=== PATIENT | female | born 1955 | race Caucasian/White ===

== ENCOUNTER → 2019-03-30 07:54 | Outpatient (CLI) | payer MEDICARE, OTHER, SELFPAY ==
--- NOTE | 2019-03-30 | DI.MG.S_ITS ---
BILATERAL DIGITAL SCREENING MAMMOGRAM 3D/2D WITH CAD: 03/30/2019 CLINICAL: Routine screening. Comparison is made to exams dated: 04/13/2017 mammogram, 03/23/2016 mammogram - [facility], and 02/07/2013 mammogram - [facility]. The tissue of both breasts is predominantly fatty. Current study was also evaluated with a Computer Aided Detection (CAD) system. No significant masses, calcifications, or other findings are seen in either breast. There has been no significant interval change. IMPRESSION: NEGATIVE There is no mammographic evidence of malignancy. A 1 year screening mammogram is recommended. This exam was interpreted at Station ID: [id number]. NOTE: For mammograms, a report in lay terms will be sent to the patient. Approximately 15% of breast malignancies will not be visualized mammographically. In the management of a palpable breast mass, a negative mammogram must not discourage biopsy of a clinically suspicious lesion. Electronically Signed By: Yaron edmonds/kayla:03/30/2019 10:25:15 letter sent: Normal Exam ACR BI-RADS Category 1: Negative 3341F
== END ==
PROVIDERS: PCP Family Medicine; Visit Provider Family Medicine
DX: Z12.31 Encounter for screening mammogram for malignant neoplasm of breast (principal)
CPT/HCPCS: 77063; 77067

== ENCOUNTER → 2020-04-29 11:08 | Outpatient (CLI) | payer MEDICARE, OTHER, SELFPAY ==
--- NOTE | 2020-04-29 | DI.MG.S_ITS ---
BILATERAL DIGITAL SCREENING MAMMOGRAM 3D/2D WITH CAD: 04/29/2020 CLINICAL: Routine screening. Comparison is made to exams dated: 03/30/2019 mammogram, 04/13/2017 mammogram, and 03/23/2016 mammogram - [facility]. The tissue of both breasts is predominantly fatty. Current study was also evaluated with a Computer Aided Detection (CAD) system. No significant masses, calcifications, or other findings are seen in either breast. There has been no significant interval change. IMPRESSION: NEGATIVE There is no mammographic evidence of malignancy. A 1 year screening mammogram is recommended. This exam was interpreted at Station ID: [id number]. NOTE: For mammograms, a report in lay terms will be sent to the patient. Approximately 15% of breast malignancies will not be visualized mammographically. In the management of a palpable breast mass, a negative mammogram must not discourage biopsy of a clinically suspicious lesion. Electronically Signed By: Yaron edmonds/kayla:04/29/2020 15:21:34 letter sent: Normal Exam ACR BI-RADS Category 1: Negative 3341F
== END ==
PROVIDERS: PCP Family Medicine; Referring Provider Family Medicine; Visit Provider Family Medicine
DX: Z12.31 Encounter for screening mammogram for malignant neoplasm of breast (principal)
CPT/HCPCS: 77063; 77067

== ENCOUNTER → 2020-11-05 14:15 | Outpatient (CLI) | payer MEDICARE, OTHER, SELFPAY ==
--- NOTE | 2020-11-05 | DI.RAD.S_ITS ---
PROCEDURE: XR RIBS LT 2V INDICATIONS: Pleurodynia TECHNIQUE: 2 views of the left ribs were acquired. COMPARISON: [facility], CR, XR CHEST 2V, 11/05/2020, 14:24. FINDINGS: Surgical changes and devices: None. Bones and chest wall: Possible nondisplaced fracture of the left 7th rib laterally. No suspicious bony lesions. Overlying soft tissues appear unremarkable. Severe scoliosis. Lungs and pleura: The visualized lung appears clear. No pleural effusions or pneumothorax are visible. IMPRESSION: Possible nondisplaced left 7th rib fracture. Dictated by: Nelida Costa M.D. on 11/05/2020 at 15:27 Approved by: Nelida Costa M.D. on 11/05/2020 at 15:32
--- NOTE | 2020-11-05 | DI.RAD.S_ITS ---
PROCEDURE: XR CHEST 2V INDICATIONS: Pleurodynia TECHNIQUE: 2 views of the chest were acquired. COMPARISON: None. FINDINGS: Surgical changes and devices: None. Lungs and pleura: Lungs are clear. No pleural effusions or pneumothorax. Mediastinum: Mediastinal contours are normal. Heart size is normal. Bones and chest wall: No suspicious bony abnormalities. Soft tissues appear unremarkable. IMPRESSION: Normal for age, source of current chest pain symptoms is not seen. Dictated by: Dominik Jaime M.D. on 11/05/2020 at 14:59 Approved by: Dominik Jaime M.D. on 11/05/2020 at 14:59
== END ==
PROVIDERS: PCP Family Medicine; Referring Provider Nurse Practitioner Family; Visit Provider Nurse Practitioner Family
DX: R07.81 Pleurodynia (principal)
CPT/HCPCS: 71046; 71100

== ENCOUNTER → 2020-12-09 09:29 | Outpatient (CLI) | payer MEDICARE, OTHER, SELFPAY ==
--- NOTE | 2020-12-09 09:31 | DI.RAD.S_ITS ---
PROCEDURE: XR DEXA AXIAL SKELETON INDICATIONS: Fracture of one rib, left side, initial encounter COMPARISON: None. FINDINGS: This blank DEXA report has been sent in error by the PACS system. The correct and complete report will be forthcoming in 1-2 days. Thank you for your patience and understanding. Dictated by: Flaca Lewis MD, PhD on 12/09/2020 at 16:17 Approved by: Flaca Lewis MD, PhD on 12/09/2020 at 16:17
== END ==
PROVIDERS: PCP Family Medicine; Referring Provider Nurse Practitioner Family; Visit Provider Nurse Practitioner Family
DX: Z78.0 Asymptomatic menopausal state (principal); M85.852 Other specified disorders of bone density and structure, left thigh; E07.9 Disorder of thyroid, unspecified; S22.32XA Fracture of one rib, left side, initial encounter for closed fracture; E11.9 Type 2 diabetes mellitus without complications; Z82.62 Family history of osteoporosis
CPT/HCPCS: 77080

== ENCOUNTER → 2021-05-09 17:08 | Outpatient (CLI) | payer MEDICARE, OTHER, SELFPAY ==
--- NOTE | 2021-05-09 | DI.MG.S_ITS ---
BILATERAL DIGITAL SCREENING MAMMOGRAM 3D/2D WITH CAD: 05/09/2021 CLINICAL: Routine screening. Comparison is made to exams dated: 04/29/2020 mammogram, 03/30/2019 mammogram, 04/13/2017 mammogram, and 03/23/2016 mammogram - [facility]. There are scattered fibroglandular elements in both breasts. Current study was also evaluated with a Computer Aided Detection (CAD) system. No significant masses, calcifications, or other findings are seen in either breast. There has been no significant interval change. IMPRESSION: NEGATIVE There is no mammographic evidence of malignancy. A 1 year screening mammogram is recommended. This exam was interpreted at Station ID: [id number]. NOTE: For mammograms, a report in lay terms will be sent to the patient. Approximately 15% of breast malignancies will not be visualized mammographically. In the management of a palpable breast mass, a negative mammogram must not discourage biopsy of a clinically suspicious lesion. Electronically Signed By: Jorge Luis evans/kayla:05/12/2021 07:53:55 letter sent: Normal Exam ACR BI-RADS Category 1: Negative 3341F
== END ==
PROVIDERS: PCP Student in an Organized Health Care Education/Training Program; Referring Provider Student in an Organized Health Care Education/Training Program; Visit Provider Student in an Organized Health Care Education/Training Program
DX: Z12.31 Encounter for screening mammogram for malignant neoplasm of breast (principal)
CPT/HCPCS: 77063; 77067

== ENCOUNTER → 2021-11-27 15:58 | Outpatient (CLI) | payer MEDICARE, OTHER, SELFPAY ==
--- NOTE | 2021-11-27 | DI.RAD.S_ITS ---
PROCEDURE: XR CHEST 2V INDICATIONS: CHEST PAIN TECHNIQUE: 2 views of the chest were acquired. COMPARISON: [facility], CR, XR CHEST 2V, 11/05/2020, 14:24. FINDINGS: Surgical changes and devices: None. Lungs and pleura: Lungs are clear. No pleural effusions or pneumothorax. Mediastinum: Mediastinal contours are normal. Heart size is normal. Bones and chest wall: No suspicious bony abnormalities. Soft tissues appear unremarkable. IMPRESSION: No acute finding. Dictated by: Genaro Moreno M.D. on 11/27/2021 at 16:33 Approved by: Genaro Moreno M.D. on 11/27/2021 at 16:33
== END ==
PROVIDERS: PCP Student in an Organized Health Care Education/Training Program; Referring Provider Student in an Organized Health Care Education/Training Program; Visit Provider Student in an Organized Health Care Education/Training Program
DX: R07.89 Other chest pain (principal)
CPT/HCPCS: 71046

== ENCOUNTER → 2021-12-04 13:56 | Outpatient (CLI) | payer MEDICARE, OTHER, SELFPAY ==
--- NOTE | 2021-12-10 10:02 | DIAB.MNT ---
Initial Diabetes Medical Nutrition Therapy Assessment Name: Francisca Mays Date: 12/04/21 Time: 3-410p Dx: Type II Diabetes Provider: Jean Pierre Preferred Learning Style: Reading, hands on Frantz presents today for initial visit regarding T2DM. Recent hgA1c of 7.9%. States she has recently been working on switching to vegetarian. meat and potatoes flaco. Does not love carb counting, though is open to learning more about this to be more educated in reading recipes. Would prefer more general guidelines. States she feels compulsive about eating sweets, mostly chocolate. Has found some low carb chocolates to curb cravings. Significant FH of DM with both parents. Her brother three months ago from DM complications. Understandably tearful regarding this today. Reports feeling some diabetes distress. Feels tired/fatigued with her DM. Feels she is 50# overweight. Endorses angina, sees manual arts therapist 12/05/21. Reports frequent urination and inadequate fluid intake. States she does not feel thirst most of the day. Diet Recall: 8a: oatmeal with walnuts and cranberries, 1/2 tsp honey (30g CHO) ; shake (30g CHO) 11-12: 4-5 crackres, cheese, nuts, fruit (30g CHO0 3p: nothing or 10 chips with salads (0-15g CHO) 6p: acorn squash with rice ; meat potatoes with salad (15-30g CHO) HS: nothing trying to avoid sweets Anthropometrics: Ht: 4'11 Wt: 164# reported Weight history: UBW reported 150s# Physical Activity: use to do [employer] aerobics, her schedule is a barrier. Just returned from her home in [place]. Currently walking most days for 20-25 min Self-Monitoring Blood Glucose: Limited SMBG. BG recorded: 08/10/21: 139 ; 09/12/21: 177 ; 11/05/21: 122 Diabetes Medications: Jardiance 10mg daily Metformin 1000mg BID Pertinent Labs: HgA1c 7.95 H (10/221) ; up from 7.7% Past Medical History: Reported : HLD, Kidney stones, neuropathy, hypothyroidism, angina Nutrition Rx: Carbohydrates: Meal:30-45g Snack: 15-30g Nutrition Diagnosis: - Self monitoring deficit r/t stage of change preparation for SMBG aeb pt report and BG log - Nutrition and food related knowledge deficit r/t limited understanding of carb counting, label reading, and portion recs aeb pt report - Inadequate fluid intake r/t stage of change aeb pt report Intervention: This participant was very receptive. Provided appropriate educational handouts. Discussed the following topics: Completed intake assessment. Discussed barriers to care. Importance of self-monitoring, how often, and when to check. Suggested checking at different times to evaluate meals Diabetes distress and self expectations in DM care Plate Method, impact of macronutrients on blood sugar, meal timing, option for carbohydrate counting, pairing macronutrients and spreading out carbohydrates for better blood glucose management Recommended servings for carbohydrates at meals and snacks Heart health nutrition Tendency for vegetarian diets to be high in CHO Role of physical activity and following guidelines for safety Created SMART goals for patient self-care and success. Goals: Check FBG Attend pool 1 x per week walk 4 days per week check into time marker water bottle Check food labels/recipes for net carbs Follow-up: HERMILA CAMARILLO follow-up in 2-3 weeks, considering taking 3rd DM class. Next visit: foot health, vegetarian proteins and meal planning. Jordana Jones RDN, [facility] Certified Diabetes Care and Cake Stripper P: [phone] Thank you for this referral
== END ==
PROVIDERS: PCP Student in an Organized Health Care Education/Training Program; Referring Provider Student in an Organized Health Care Education/Training Program; Visit Provider Student in an Organized Health Care Education/Training Program
DX: E11.9 Type 2 diabetes mellitus without complications (principal); Z79.84 Long term (current) use of oral hypoglycemic drugs; Z71.3 Dietary counseling and surveillance
CPT/HCPCS: 97802

== ENCOUNTER → 2021-12-25 14:15 | Outpatient (CLI) | payer MEDICARE, OTHER, SELFPAY ==
--- NOTE | 2021-12-31 14:49 | DIAB.MNTFU ---
Follow-up Diabetes Medical Nutrition Therapy Assessment Name: Francisca Mays Date: 12/25/21 Time: 230-3p Dx: Type II Diabetes Frantz presents for follow-up regarding T2DM. States she has been tracking FBG and exercise. Has been working on drinking more water since last visit, especially since learning about Jardiance action. States she has been dealing with some unfortunate urgent diarrhea lately. States she has had 2 incidences per week of not making it to the toilet. has contact PCP. Is wondering if there are any foods to eat or avoid. Anthropometrics: Ht: Wt: 164# last reported, no new wt today Physical Activity: Started walking 4 days per week for 20-30 mins. Swim aerobics once per week. Self-Monitoring Blood Glucose: 09/01 elevated FBG per ADA guidelines. No pc readings for review. Date Pre Post Pre Post Pre Post HS 12/19 143 12/20 113 12/21 124 12/22 157 12/23 105 12/24 103 12/25 122 Diabetes Medications: Jardiance 10mg daily Metformin 1000mg BID Pertinent Labs: HgA1c 7.9% H (10/221) ; up from 7.7% Past Medical History: Reported : HLD, Kidney stones, neuropathy, hypothyroidism, angina Nutrition Rx: Carbohydrates: Meal:30-45g Snack: 15-30g Nutrition Diagnosis: - Self monitoring deficit r/t stage of change preparation for SMBG aeb pt report and BG log - improved - Nutrition and food related knowledge deficit r/t limited understanding of carb counting, label reading, and portion recs aeb pt report- not discussed in detail today - Inadequate fluid intake r/t stage of change aeb pt report - improved Intervention: This participant was very receptive. Provided appropriate educational handouts. Discussed the following topics: Blood sugar review and trends. consideration for checking pc readings. Fiber: soluble v insoluble impact on diarrhea Improvements in hydration Physical activity plan and progress Created SMART goals for patient self-care and success. Goals: Check FBG- met Attend pool 1 x per week- met walk 4 days per week- met check into time marker water bottle- met Check food labels/recipes for net carbs- not discussed Aim for 1.5 of new water bottle- new 30 min walking daily - new Follow-up: HERMILA CAMARILLO follow-up in 2-3 weeks. Jordana Jones RDN, [facility] Certified Diabetes Care and Dope Sprayer P: [phone] Thank you for this referral
== END ==
PROVIDERS: PCP Student in an Organized Health Care Education/Training Program; Referring Provider Student in an Organized Health Care Education/Training Program; Visit Provider Student in an Organized Health Care Education/Training Program
DX: E11.9 Type 2 diabetes mellitus without complications (principal); Z71.3 Dietary counseling and surveillance; Z79.84 Long term (current) use of oral hypoglycemic drugs
CPT/HCPCS: 97803

== ENCOUNTER → 2022-02-24 14:31 | Outpatient (CLI) | payer MEDICARE, OTHER, SELFPAY ==
--- NOTE | 2022-02-24 16:56 | DIAB.FU ---
Follow-up Diabetes Education Assessment Name: Francisca Mays Date: 02/24/22 Time: 240-315 Dx: Type II Diabetes Frantz presents today for diabetes education. Reports recent [facility] ED visit for kidney stones. Doing much better now. States they are usually calcium oxalate stones. Has tried avoiding oxalate foods. Water intake seems to be main issue per report. Continues taking Metformin as rx'd though has questions about taking with food, asking if she has to for the pm dose. Denies any GI upset with how she is currently taking it. Continued difficulty with water intake. Averaging 32-40oz per day, low for Jardiance and h/o kidney stones. States most of her fluid consumption is in the pm. Busy with chores in the morning. Endorses more eating out lately. Also reports less variety with veggies. cooks and makes a salad that she does not like much. No other veggies available. She does not prefer to cook. Only eats organic veggies. Physical Activity: Stopped tracking exercise, which has resulted in reduced exercise. Continues swim class on Mondays and walks sometimes. Has noticed an increase in BG recently with reduced exercise. Self-Monitoring Blood Glucose: All but one elevated FBG in the last 7 readings. Prior readings also indicate >130 mg/dL for most FBG. No postprandial for review. Date Pre Post Pre Post Pre Post HS no date-- January 119 no date-- january 143 no date-- january 158 02/19 141 02/20 147 02/23 142 02/24 157 Diabetes Medications: Jardiance 10mg daily Metformin 1000mg BID Pertinent Labs: HgA1c 7.9% H (10/221) ; up from 7.7%. Has PCP visit tomorrow with Jose C and lab work completed. Past Medical History: Reported : HLD, Kidney stones, neuropathy, hypothyroidism, angina Intervention: This participant was very receptive. Provided appropriate educational handouts. Discussed the following topics: Recent blood sugar results and trends Fluid recs and potential strategies for inc Review of general nutrition recommendations and current intake Ways to inc veggie intake with easy to prep veggies (precut, steamer bags) Physical activity plan and impact on blood sugars Fluids and kidney health and jardiance Metformin action time and rec for taking with food is mostly for GI Created SMART goals for patient self-care and success. Goals: Aim for 1.5 of new water bottle- not met 30 min walking daily - not met Drink 8oz water while doing kitchen chores in the am- new Restart tracking exercise- new Check grocery store for steamer veggies - new Follow-up: HERMILA CAMARILLO follow-up in 2-3 weeks Jordana Jones RDN, [facility] Certified Diabetes Care and Financial Institution Manager P: [phone] Thank you for this referral
== END ==
PROVIDERS: PCP Student in an Organized Health Care Education/Training Program; Referring Provider Student in an Organized Health Care Education/Training Program; Visit Provider Student in an Organized Health Care Education/Training Program
DX: E11.9 Type 2 diabetes mellitus without complications (principal); Z79.84 Long term (current) use of oral hypoglycemic drugs; Z71.3 Dietary counseling and surveillance; Z87.442 Personal history of urinary calculi
CPT/HCPCS: G0108

== ENCOUNTER → 2022-03-11 10:22 | Outpatient (CLI) | payer MEDICARE, OTHER, SELFPAY ==
--- NOTE | 2022-03-25 17:28 | DIAB.MNTFU ---
Follow-up Diabetes Medical Nutrition Therapy Assessment Name: Francisca Mays Date: 03/11/22 Time: [id number] Dx: Type II Diabetes Frantz presents for quick check-in. States she has been walking more and tracking PA and BG. reports BG did increase due to diet, mostly ice cream. Saw Dr. Woodall and recent HgA1c was 6.6%! She is very pleased. Reports increasing veggies with salad and frozen veggies. Has been craving sweets, which she attributes coping with food to stress as a child with her father. States he made life hard and she would cope with sugar. Keeps sugar to moderate portions, one cup of ice cream or smaller bag of candy m&ms. Has tried Atkins sweets before with satisfaction. Continues to work on water intake. States she is often 8-16oz below goal each day. Anthropometrics: Ht: Wt: 164# last reported, no new wt today Physical Activity: Recently restarted walking for 30-45min x 3-5 days per week. Self-Monitoring Blood Glucose: Recent FB, 136, 156, 140, 159 (4/5 elevated per ADA) Diabetes Medications: Jardiance 10mg daily Metformin 1000mg BID Pertinent Labs: Recent reported 6.6% HgA1c 7.9% H (10/221) Past Medical History: Reported : HLD, Kidney stones, neuropathy, hypothyroidism, angina Nutrition Rx: Carbohydrates: Meal:30-45g Snack: 15-30g Nutrition Diagnosis: - Self monitoring deficit r/t stage of change preparation for SMBG aeb pt report and BG log - improved - Inadequate fluid intake r/t stage of change aeb pt report - in progress Intervention: This participant was very receptive. Provided appropriate educational handouts. Discussed the following topics: Blood sugar review and trends. Impact of food intake and physical activity Stress management and stress eating Strategies for inc water Physical activity plan and progress Created SMART goals for patient self-care and success. Goals: Drink 8oz water while doing kitchen chores in the am- in progress Restart tracking exercise- met Check grocery store for steamer veggies - met supervisor model making Atkins chocolate bar- new Keep walking- new Add 8oz wtaer per day- continue Follow-up: HERMILA CAMARILLO follow-up in 4 weeks Jordana Jones RDN, [facility] Certified Diabetes Care and Automated Process Operator P: [phone] Thank you for this referral
== END ==
PROVIDERS: PCP Student in an Organized Health Care Education/Training Program; Referring Provider Student in an Organized Health Care Education/Training Program; Visit Provider Student in an Organized Health Care Education/Training Program
DX: E11.9 Type 2 diabetes mellitus without complications (principal); Z79.84 Long term (current) use of oral hypoglycemic drugs; Z71.3 Dietary counseling and surveillance
CPT/HCPCS: 97803

== ENCOUNTER → 2022-04-09 10:24 | Outpatient (CLI) | payer MEDICARE, OTHER, SELFPAY ==
--- NOTE | 2022-04-23 10:37 | DIAB.MNTFU ---
Follow-up Diabetes Medical Nutrition Therapy Assessment Name: Francisca Mays Date: 04/09/22 Time: 1030-11a Dx: Type II Diabetes Frantz presents for follow-up. Reports overall improvements to lifestyle change. Consistent in walking. Has been able to avoid most sweets with using low carb bars for snacks. Has been sometimes adding the extra 8oz water in the morning to be closer to her goal for fluids. Has questions regarding diet soda vs real soda. Gets a diet soda when eating out. Estimates about 40oz water intake most days. Feels more aware of nutrition and water intake now. Would like to exercise longer periods of time. Leaves for [place] in April. Anthropometrics: Ht: Wt: 164# last reported, no new wt today Physical Activity: Walking 30-60 mins per day Self-Monitoring Blood Glucose: Recent FBG 116-132 mg/dL (in goal). Some readings up to 145 mg/dL over the last month, with one high of 159 mg/dL. Overall walking seems to help with morning readings. More consistent walking in her calendar seems to result in better FBG over the following weeks. Diabetes Medications: Jardiance 10mg daily Metformin 1000mg BID Pertinent Labs: Recent reported 6.6% HgA1c 7.9% H (10/221) Past Medical History: Reported : HLD, Kidney stones, neuropathy, hypothyroidism, angina Nutrition Rx: Carbohydrates: Meal:30-45g Snack: 15-30g fluids: 60oz Nutrition Diagnosis: - Inadequate fluid intake r/t stage of change aeb pt report - in progress Intervention: This participant was very receptive. Provided appropriate educational handouts. Discussed the following topics: Blood sugar review and trends. Impact of exercise on results. Diet vs regular soda and impact on BG and health strategies around fluid intake and realistic goals Physical activity plan and progress Created SMART goals for patient self-care and success. Goals: curtain supervisor Atkins chocolate bar- met Keep walking- met Add 8oz wtaer per day- 50% met Walk 45 min- new 40-60oz water/day goal- new Follow-up: HERMILA CAMARILLO follow-up in 4-6 weeks Jordana Jones RDN, [facility] Certified Diabetes Care and Tunnel Heading Inspector P: [phone] Thank you for this referral
== END ==
PROVIDERS: PCP Student in an Organized Health Care Education/Training Program; Referring Provider Student in an Organized Health Care Education/Training Program; Visit Provider Student in an Organized Health Care Education/Training Program
DX: E11.9 Type 2 diabetes mellitus without complications (principal); Z71.3 Dietary counseling and surveillance
CPT/HCPCS: 97803

== ENCOUNTER → 2022-11-06 09:11 | Outpatient (CLI) | payer MEDICARE, OTHER, SELFPAY | PROVIDERS: PCP Student in an Organized Health Care Education/Training Program; Visit Provider Physician Assistant | DX: N89.8 Other specified noninflammatory disorders of vagina (principal) | CPT/HCPCS: 87086; 87210 ==

== ENCOUNTER → 2022-11-26 13:50 | Outpatient (CLI) | payer MEDICARE, OTHER, SELFPAY ==
--- NOTE | 2022-11-26 | DI.RAD.S_ITS ---
Bone Density Report Name: YVETTE THOMAS Age: 67 Sex: Female Ethnicity: White Date of : 1955 Indication: postmenopausal; screening for osteoporosis; Referring Provider: SANTO PERDOMO Study: Bone densitometry was performed. Exam Date: November 26, 2022 Accession number: [id number] Bone Density: Region BMD T-score Z-score Classification AP Spine(L1-L4) 0.928 -1.1 1.0 Osteopenia Femoral Neck (Left) 0.650 -1.8 -0.1 Osteopenia Total Hip (Left) 0.960 0.1 1.6 Normal Femoral Neck (Right) 0.685 -1.5 0.3 Osteopenia Total Hip (Right) 0.932 -0.1 1.4 Normal Total Hip Mean 0.946 0.0 1.5 Normal World Health Organization criteria for BMD impression classify patients as: Normal (T-score at or above -1.0), Osteopenia (T-score between -1.0 and -2.5), or Osteoporosis (T-score at or below -2.5). 10-year Fracture Risk(1): Major Osteoporotic Fracture 10% Hip Fracture 1.5% Reported Risk Factors: [place] (), Neck BMD=0.650, BMI=30.9 (1) FRAX(R) Version 3.08. Fracture probability calculated for an untreated patient. Fracture probability may be lower if the patient has received treatment. Previous Exams: -- Region Exam Age BMD T-score BMD Change BMD Change Date g/cm2 vs Baseline vs Previous -- AP Spine (L1-L4) 11/26/2022 67 0.928 -1.1 -0.079 (-7.9%)# -0.079 (-7.9%)# 12/09/2020 65 1.008 -0.4 Total Hip(Left) 11/26/2022 67 0.960 0.1 -0.028 (-2.9%)# -0.028 (-2.9%)# 12/09/2020 65 0.988 0.4 Total Hip(Right) 11/26/2022 67 0.932 -0.1 0.013 (1.4%)# 0.013 (1.4%)# 12/09/2020 65 0.919 -0.2 -- *Denotes significance at 95% confidence level, LSC for AP Spine = 0.022 g/cm2, LSC for Total Hip = 0.027 g/cm2 # Denotes dissimilar scan types or analysis methods Impression: The patient has low bone mass, based on the Left Femoral Neck T-score. The patient has an estimated ten-year risk of hip fracture of 1.5% and an estimated ten-year risk of major fracture of 10%, based on the WHO FRAX algorithm. No significant bone loss was observed. Discussion: BONE DENSITY IS LOW AT ONE OR MORE SKELETAL SITES. This patient's lowest T-score is low at one or more skeletal sites. It meets the World Health Organization's (WHO) criteria for low bone mass (T-score between -1.0 and -2.5). The patient's 10-year risk of fracture as calculated by FRAX is less than the threshold where pharmacological therapy is recommended by the National Osteoporosis Foundation (NOF). However, all treatment decisions require clinical judgment and consideration of individual patient factors, including patient preferences, comorbidities, previous drug use, risk factors not captured in the FRAX model (e.g., frailty, falls, vitamin D deficiency, increased bone turnover, interval significant decline in bone density) and possible under or overestimation of fracture risk by FRAX. The patient should follow a healthful lifestyle (good nutrition with adequate calcium and vitamin D, and appropriate weight-bearing exercise). Follow-Up: Consider repeating this study in 2 to 3 years to reassess this patient's status, or sooner if there is some new clinical indication. Reported by: TERRENCE ONEAL M.D. on 11/26/2022 2:29:00 PM.
--- NOTE | 2022-11-26 | DI.MG.S_ITS ---
BILATERAL DIGITAL SCREENING MAMMOGRAM 3D/2D WITH CAD: 11/26/2022 CLINICAL: Routine screening. Comparison is made to exams dated: 05/09/2021 mammogram, 04/29/2020 mammogram, and 03/30/2019 mammogram - [facility]. There are scattered areas of fibroglandular density in both breasts (category b / 25%-50% glandular tissue). Current study was also evaluated with a Computer Aided Detection (CAD) system. No significant masses, calcifications, or other findings are seen in either breast. There has been no significant interval change. IMPRESSION: NEGATIVE There is no mammographic evidence of malignancy. A 1 year screening mammogram is recommended. Based on the Tyrer Cuzick model (a risk assessment model) the patient's lifetime risk is 4.0% and her 10 year risk is 2.3%. According to the ACR, ACS, and NCCN guidelines, an annual breast MRI exam along with mammogram is recommended if the patient's lifetime risk is 20% or greater. This exam was interpreted at Station ID: [id number]. NOTE: For mammograms, a report in lay terms will be sent to the patient. Approximately 15% of breast malignancies will not be visualized mammographically. In the management of a palpable breast mass, a negative mammogram must not discourage biopsy of a clinically suspicious lesion. Electronically Signed By: Christian masters/kayla:11/26/2022 15:27:33 letter sent: Normal Exam ACR BI-RADS Category 1: Negative 3341F
== END ==
PROVIDERS: PCP Family Medicine; Referring Provider Internal Medicine; Visit Provider Internal Medicine
DX: Z12.31 Encounter for screening mammogram for malignant neoplasm of breast (principal); Z78.0 Asymptomatic menopausal state; Z13.820 Encounter for screening for osteoporosis; M85.852 Other specified disorders of bone density and structure, left thigh
CPT/HCPCS: 77063; 77067; 77080

== ENCOUNTER → 2023-11-29 08:08 | Outpatient (CLI) | payer MEDICARE, OTHER, SELFPAY ==
--- NOTE | 2023-11-29 08:09 | DI.MG.S_ITS ---
BILATERAL DIGITAL SCREENING MAMMOGRAM 3D/2D WITH CAD: 11/29/2023 CLINICAL: Routine screening. Comparison is made to exams dated: 11/26/2022 mammogram, 05/09/2021 mammogram, and 04/29/2020 mammogram - [facility]. There are scattered areas of fibroglandular density in both breasts (category b / 25%-50% glandular tissue). Current study was also evaluated with a Computer Aided Detection (CAD) system. There is a benign calcification in the right breast. No significant masses, calcifications, or other findings are seen in either breast. There has been no significant interval change. IMPRESSION: BENIGN There is no mammographic evidence of malignancy. A 1 year screening mammogram is recommended. Based on the Tyrer Cuzick model (a risk assessment model) the patient's lifetime risk is 3.8% and her 10 year risk is 2.4%. According to the ACR, ACS, and NCCN guidelines, an annual breast MRI exam along with mammogram is recommended if the patient's lifetime risk is 20% or greater. This exam was interpreted at Station ID: [id number]. NOTE: For mammograms, a report in lay terms will be sent to the patient. Approximately 15% of breast malignancies will not be visualized mammographically. In the management of a palpable breast mass, a negative mammogram must not discourage biopsy of a clinically suspicious lesion. Electronically Signed By: Shyanne schaffer/kayla:11/29/2023 15:49:00 letter sent: Normal Exam ACR BI-RADS Category 2: Benign Finding(s) 3342F
== END ==
LOC: MAMMO 08:09
PROVIDERS: PCP Family Medicine; Referring Provider Family Medicine; Visit Provider Family Medicine
DX: Z12.31 Encounter for screening mammogram for malignant neoplasm of breast (principal); R92.323 Mammographic fibroglandular density, bilateral breasts
CPT/HCPCS: 77063; 77067

== ENCOUNTER → 2024-10-18 10:35 | Outpatient (CLI) | payer MEDICARE, OTHER, SELFPAY ==
--- NOTE | 2024-10-18 10:38 | DI.MRI.S_ITS ---
PROCEDURE: MR CERVICAL SPINE WO CON INDICATIONS: NECK PAIN,CERVICAL RADICULOPATHY TECHNIQUE: Noncontrast sagittal T1 spin echo and T2 fast spin echo, sagittal STIR, foraminal oblique sagittal T2 fast spin echo, and axial gradient echo or T2 fast spin echo through the cervical spine. COMPARISON: None. FINDINGS: Image quality: Excellent. Alignment and Curvature: Loss of normal cervical lordosis. 2 mm of retrolisthesis of C3 on C4. 3 mm of anterolisthesis of C4 on C5. 2 mm of retrolisthesis of C6 on C7. Bone Marrow: Marrow demonstrates normal overall signal. Mild reactive signal throughout the endplates of the cervical and upper thoracic spine, most prominently at C5-C6 and C6-C7. Spinal Cord: Visualized spinal cord has normal size and signal. No cerebellar tonsillar herniation. Paraspinous Soft Tissues: No paravertebral masses. Prevertebral soft tissues are normal in thickness. C2-C3: Moderate disc desiccation. Mild diffuse disc bulge. Mild facet and uncovertebral hypertrophy. Mild canal stenosis. Mild bilateral foraminal stenosis. C3-C4: Moderate disc desiccation. Mild disc height loss and diffuse disc bulge. Mild facet and uncovertebral hypertrophy. Mild canal stenosis. Moderate left and mild right foraminal stenosis. C4-C5: Moderate disc height loss and desiccation. Mild diffuse disc bulge. Mild facet and uncovertebral hypertrophy. Mild canal stenosis. Moderate right and mild left foraminal stenosis. C5-C6: Moderate disc height loss and desiccation. Moderate diffuse disc bulge. Moderate facet and uncovertebral hypertrophy bilaterally. Moderate to severe canal stenosis. Minimal cord flattening. Severe right and moderate left foraminal stenosis. Right C6 nerve root compression. C6-C7: Moderate disc desiccation. Mild disc height loss. Moderate diffuse disc bulge. Moderate facet and uncovertebral hypertrophy bilaterally. Moderate canal stenosis. Moderate bilateral foraminal stenosis. C7-T1: Moderate disc desiccation. Mild facet and uncovertebral hypertrophy bilaterally. No significant canal stenosis. Mild bilateral foraminal stenosis. IMPRESSION: 1. Multilevel degenerative disc and facet disease, as well as uncovertebral hypertrophy. 2. Multilevel canal stenoses, worst at C5-C6 where there is minimal cord flattening. 3. Multilevel foraminal stenoses, worst at C5-C6 where there is associated intraforaminal nerve root compression. Recommend correlation with clinical symptoms to ascertain relevance of this finding. Dictated by: Arturo Hylton M.D. on 10/18/2024 at 12:26 Approved by: Arturo Hylton M.D. on 10/18/2024 at 12:29
== END ==
LOC: MRI 10:37
PROVIDERS: PCP Family Medicine; Referring Provider Family Medicine; Visit Provider Family Medicine
DX: M50.11 Cervical disc disorder with radiculopathy, high cervical region (principal); M47.22 Other spondylosis with radiculopathy, cervical region; M48.02 Spinal stenosis, cervical region
CPT/HCPCS: 72141

== ENCOUNTER → 2024-11-10 07:30 | Outpatient (CLI) | payer MEDICARE, OTHER, SELFPAY ==
--- NOTE | 2024-11-10 07:31 | DI.US.S_ITS ---
PROCEDURE: US THYROID INDICATIONS: THYROID DISORDER SCREEN TECHNIQUE: Real-time scanning was performed of the thyroid gland, with image documentation. COMPARISON: None. FINDINGS: Thyroid: Right lobe measures 1.9 x 1.2 x 0.8 cm. Left lobe measures 4.3 x 1.9 cm. Isthmus is 0.14 cm thick. Echotexture is heterogeneous. Nodule number: 1 Location: Left thyroid lobe Size: 3.0 x 1.8 x 2.6 cm. Composition: Solid Echogenicity: Isoechoic to hypoechoic Shape: wider than tall. Margins: Smooth Echogenic foci: None Total points: 4 ACR TI-RADS category: 4 IMPRESSION: TI-RADS 4 lesion of the left thyroid lobe measuring 3.0 x 1.8 x 2.6 cm. Per chart review, the patient underwent biopsy of the thyroid 20 years prior, with benign results. Size comparison is not available at time of dictation. Correlation with prior examination is recommended. If this lesion has been biopsied in the past, and there has been 20% volume increase compared with prior, a re-biopsy would be indicated. If there has been no interval change of this previously biopsied nodule, no additional biopsy is recommended. Heterogeneous thyroid echogenicity, consistent with thyroiditis. ACR TI-RADS definitions and recommendations: TI-RADS 1 (benign): 0 points. FNA not needed. TI-RADS 2 (not suspicious): 2 points. FNA not needed. TI-RADS 3: 3 points. * FNA if 2.5 cm or larger, follow up if 1.5 cm or larger (at 1, 3, and 5 years). TI-RADS 4: 4-6 points. * FNA if 1.5 cm or larger, follow up if 1 cm or larger (at 1, 2, 3, and 5 years). TI-RADS 5: 7 points or more. * FNA if 1 cm or larger, follow up if 0.5 cm or larger (every year for 5 years). Dictated by: Donald Saravia M.D. on 11/10/2024 at 8:49 Approved by: Donald Saravia M.D. on 11/10/2024 at 9:02
== END ==
PROVIDERS: PCP Family Medicine; Referring Provider Family Medicine; Visit Provider Family Medicine
DX: Z13.29 Encounter for screening for other suspected endocrine disorder (principal); E07.89 Other specified disorders of thyroid
CPT/HCPCS: 76536

== ENCOUNTER → 2024-12-16 08:45 | Outpatient (CLI) | payer MEDICARE, OTHER, SELFPAY ==
--- NOTE | 2024-12-16 08:46 | DI.MG.S_ITS ---
MM screening mammo BI: 12/16/2024. BI-RADS: 2 CLINICAL: 69-year old female for bilateral screening mammogram. Tyrer-Cuzick lifetime risk of 2.1%. No personal or first-degree family history of breast cancer. PRIOR EXAMS 11/29/2023, 11/26/2022, 05/09/2021, 04/29/2020, 03/30/2019, 04/13/2017, 03/23/2016. MAMMOGRAPHY TECHNIQUE: 2D and 3D (tomosynthesis) digital mammographic views obtained, with additional images as needed for full coverage. Current study was also evaluated with a Computer Aided Detection (CAD) system. DENSITY A. The breasts are almost entirely fatty. MAMMOGRAPHY FINDINGS Right: Benign-appearing calcification noted on the right. There are no suspicious masses, calcifications, or other findings in the breast. No significant change from comparison. Left: No suspicious mass, asymmetry, microcalcification, or other abnormality seen. No significant change from comparison. IMPRESSION: Right * No evidence of malignancy with benign findings. Left * No evidence of malignancy. RECOMMENDATIONS Bilateral * Annual screening mammography. OVERALL ASSESSMENT CATEGORY BI-RADS-2: Benign. The [employer] recommends annual screening mammography beginning at age 40 for women with average risk of breast cancer. ELECTRONICALLY SIGNED: Shyanne Wolfe M.D. on 12/19/2024 at 12:13:44 PM PT Interpreting Station ID: [id number]
== END ==
PROVIDERS: PCP Family Medicine; Referring Provider Family Medicine; Visit Provider Family Medicine
DX: Z12.31 Encounter for screening mammogram for malignant neoplasm of breast (principal)
CPT/HCPCS: 77063; 77067

== ENCOUNTER → 2025-01-31 09:05 | Outpatient (CLI) | payer MEDICARE, OTHER, SELFPAY ==
--- NOTE | 2025-01-31 09:06 | DI.US.S_ITS ---
PROCEDURE: US ABDOMEN LIMITED INDICATIONS: abd pain TECHNIQUE: Real-time focused scanning was performed of the abdomen, with image documentation. COMPARISON: None. FINDINGS AND IMPRESSION: Significantly heterogeneous and increased hepatic echotexture, nonspecific, likely underlying hepatocellular disease and steatosis. Possible gallbladder sludge ball versus conglomerate of stones measuring up to 2.5 cm, non mobile. No sonographic Hightower sign. This less likely represents focal wall thickening or a focal mass. Consider a 3 month ultrasound follow-up to ensure stability/resolution. CBD measures 3 mm. Unremarkable partially visualized pancreas. Dictated by: Christian Prasad M.D. on 01/31/2025 at 12:04 Approved by: Christian Prasad M.D. on 01/31/2025 at 12:07
== END ==
LOC: US 09:05
PROVIDERS: PCP Family Medicine; Referring Provider Family Medicine; Visit Provider Family Medicine
DX: R10.84 Generalized abdominal pain (principal)
CPT/HCPCS: 76705